=== PATIENT | male | born 1995 | race African-American/Black ===

== ENCOUNTER 2017-02-22 16:56 | Emergency (ER) | payer MEDICAID ==
[2017-02-22 17:11] VITALS: RESP 16; TEMP 98.8; O2SAT 99
[2017-02-22] MEDS ORDERED: DEXAMETHASONE 10 MG/ML VIAL IVP ONE (17:13)
[2017-02-22] MEDS ORDERED: KETOROLAC 30 MG/1 ML SDV IVP ONE (17:13)
--- NOTE | 2017-02-22 17:17 | EDPHY ---
H & P Time Seen by Provider: 02/22/17 17:01 HPI/ROS: HPI Sore throat. 21-year-old male by private vehicle with his friend. This patient complains of worsening sore throat and swollen lymph nodes for the last 3 days. He is able to swallow liquids. Denies any stridor or voice changes. States that his lymph nodes are more swollen on the right side versus the left side. No ill contacts. No fever. No other complaints. ROS: Constitutional: No fever, no chills. No weakness. Eyes: No discharge. No changes in vision. ENT: As above. No nasal congestion or rhinorrhea. Respiratory: No cough. No shortness of breath. Cardiac: No chest pain, no palpitations. Gastrointestinal: No abdominal pain, no vomiting, no diarrhea. Musculoskeletal: No back pain. As above. No myalgias or arthralgias. Skin: No rashes. Neurological: No headache. No focal weakness or altered sensation. Past medical history: Denies any significant past medical history. No allergies to medications. Social history: Here with his friend. Nonsmoker. No alcohol. Physical Exam: General Appearance: Alert, no distress. This patient is responding to questions appropriately and in full sentences. This patient appears well- hydrated and well-nourished. Eyes: Pupils equal and round no pallor or injection. No lid edema, erythema or injection. ENT, Mouth: Mucous membranes are moist. The pharyngeal tissues mildly inflamed. No edema or swelling. No asymmetry suggestive of abscess. I do not appreciate any exudates. No voice changes. No stridor on auscultation of his neck. He has anterior cervical and submandibular lymphadenopathy more pronounced on the right side versus the left side. Respiratory: There are no retractions, lungs are clear to auscultation with good air movement bilaterally. Cardiovascular: Regular rate and rhythm. No murmur. Neurological: Motor sensory function is grossly intact. Cranial nerves are normal. Gait is normal. Skin: Warm and dry, no rashes. Musculoskeletal: Neck is supple and nontender. Extremities are symmetrical. All joints range without pain or impingement. Psychiatric: No agitation. No depression. Database: Rapid strep-negative. Monospot-positive. EKG: Imaging: Procedures: Emergency department course: Vital signs reviewed. Patient afebrile. No tachycardia. Rapid strep swab obtained. IV placed, will evaluate for mononucleosis. Patient has no contraindications to NSAIDs. No history of renal dysfunction. He will be given 30 mg of IV Toradol and 10 mg of IV Decadron. 6:00 p.m., patient re-evaluated. He is feeling better after above medications. Results of diagnostic tests discussed with him. I do not feel that antibiotics are indicated at this time. His strep swab will be cultured. Diagnosis of mononucleosis discussed. I will prescribe a 1 time dose of Decadron to be taken tomorrow. I will have him resume NSAIDs tomorrow morning as well for the next 2-3 days. I discussed follow-up with him. Return to emergency department precautions were reviewed. All of his questions were answered. He was discharged in good condition. Differential Diagnosis: The differential diagnosis on this patient includes but is not limited to viral pharyngitis, streptococcal pharyngitis, mononucleosis. Retropharyngeal abscess , peritonsillar abscess, epiglottitis, tracheitis unlikely. This represents a partial list of diagnoses considered. These considerations are based on history , physical exam, past history, reassessment and diagnostic testing. Constitutional: Initial Vital Signs Temperature (C) 37.1 C 02/22/17 17:02 Heart Rate 79 02/22/17 17:02 Respiratory Rate 16 02/22/17 17:02 Blood Pressure 126/71 H 02/22/17 17:02 O2 Sat (%) 99 02/22/17 17:02 O2 Delivery Mode Room Air Allergies/Adverse Reactions: No Known Allergies Allergy (Verified 02/22/17 17:02) Home Medications: Medication Instructions Recorded Dexamethasone [Decadron] 8 mg PO DAILY #2 tab 02/22/17 Medical Decision Making - Data Points Laboratory Results: 02/22/17 02/22/17 02/22/17 Unknown 17:38 17:09 Monoscreen POSITIVE H (NEGATIVE) Group A Strep Screen NEGATIVE (NEGATIVE) Group A Strep DNA Pending Medications Given: Discontinued Medications Dexamethasone (Decadron Injection) 10 mg IVP EDNOW ONE Stop: 02/22/17 17:14 Last Admin: 02/22/17 17:53 Dose: 10 mg Ketorolac Tromethamine (Toradol) 30 mg IVP EDNOW ONE Stop: 02/22/17 17:14 Last Admin: 08/26/17 17:50 Dose: 30 mg Departure - Departure Disposition: Home, Routine, Self-Care Clinical Impression: Acute pharyngitis, Mononucleosis Condition: Good Instructions: Mononucleosis (ED), Pharyngitis (ED) Additional Instructions: Read and follow provided instructions. Follow-up with your primary care physician in 1-2 days for re-evaluation. Ibuprofen dosing: Do not take ibuprofen until tomorrow morning at the earliest. 600 mg every 6 hours with meals for the next 3 days only. Take this medication only for pain. 1 time dose of Decadron to be taken tomorrow evening. Return to the emergency department for worsening throat pain, voice changes, difficulty breathing, stridor, fever, swelling of your neck or other serious concerns. Referrals: NONE *PRIMARY CARE P,. [Primary Care Provider] - As per Instructions [facility] [Outside] - As per Instructions Prescriptions: Dexamethasone [Decadron] 8 mg PO DAILY #2 tab
[2017-02-22 18:32] VITALS: BP 133/87; PULSE 67
== END 2017-02-22 18:31 | disposition home or self-care (01) ==
LOC: CED 16:56
DX: B27.90 Infectious mononucleosis, unspecified without complication (principal)
CPT/HCPCS: 86308-PO; 87880-PO; 96374; J1100; J1885